=== PATIENT | male | born 1970 | race Two or more races ===

== ENCOUNTER 2018-01-28 22:28 | Inpatient (IN) | payer OTHER ==
[2018-01-28] MEDS ORDERED: IV NORMAL SALINE 500ML BAG 500 ML IV (23:45)
[2018-01-28] MEDS: ACETAMINOPHEN 500 MG TABLET PO (23:55)
[2018-01-29] MEDS: IV NORMAL SALINE 1000ML BAG 1,000 ML IV ×5 (00:15→14:55)
[2018-01-29] MEDS ORDERED: ONDANSETRON PF 4 MG/2 ML VIAL. IV (00:30)
[2018-01-29] MEDS ORDERED: fentaNYL PF VIAL 100 MCG/2 ML VIAL IV (00:30)
[2018-01-29 00:32] LABS: ADD MAN DIFF? NO
[2018-01-29 00:36] LABS: BASO # 0.1 x10^3/uL (0.0-0.2); BASO % 1 % (0-3); EOS % 0 % (0-3); HEMOGLOBIN 15.8 g/dL (13.0-17.5); LYMPH # 1.1 x10^3/uL (1.0-4.8); LYMPH % 11 % (24-48); MEAN CORPUSCULAR HEMOGLOBIN 31 pg (25-35); MEAN CORPUSCULAR HGB CONC 35 g/dL (31-37); MEAN CORPUSCULAR VOLUME 88 fL (79-100); MONO # 0.7 x10^3/uL (0.0-1.1); MONO % 6 % (0-9); NEUT # 8.3 x10^3uL (1.8-7.7); NEUT % 82 % (31-73); PLATELET COUNT 141 x10^3/uL (140-400); RED BLOOD COUNT 5.13 x10^6/uL (4.30-5.70); RED CELL DISTRIBUTION WIDTH 13.9 % (11.5-14.5); WHITE BLOOD COUNT 10.2 x10^3/uL (4.0-11.0)
[2018-01-29 00:45] LABS: ANION GAP 12 (6-14); BLOOD UREA NITROGEN 10 mg/dL (8-26); BUN/CREATININE RATIO 13 (6-20); CALCIUM 8.9 mg/dL (8.5-10.1); CARBON DIOXIDE 24 mmol/L (21-32); CHLORIDE 96 mmol/L (98-107); CREATININE 0.8 mg/dL (0.7-1.3); GFR 104.1; GLUCOSE 197 mg/dL (70-99); SODIUM 132 mmol/L (136-145)
[2018-01-29 00:51] LABS: ALBUMIN 3.5 g/dL (3.4-5.0); ALBUMIN/GLOBULIN RATIO 0.8 (1.0-1.7); ALK PHOS 142 U/L (46-116); ALT (SGPT) 29 U/L (16-63); AST (SGOT) 13 U/L (15-37); TOTAL BILIRUBIN 0.7 mg/dL (0.2-1.0)
[2018-01-29 00:56] LABS: LACTIC ACID 1.1 mmol/L (0.4-2.0)
[2018-01-29 01:13] LABS: PROCALCITONIN 0.31 ng/mL (0.00-0.10)
[2018-01-29] MEDS: IBUPROFEN 800 MG TABLET. PO (01:19)
[2018-01-29] MEDS: ACETAMINOPHEN 325 MG TABLET. PO ×3 (01:20→19:18)
[2018-01-29] MEDS ORDERED: DEXTROSE 50% 25 GM / 50ML DISP.SYRIN. IV (01:30)
[2018-01-29] MEDS: PIPERACILLIN/TAZOBACTAM 3.375 GM in IV NORMAL SALINE 50ML 50 ML IV ×4 (02:47→21:08)
[2018-01-29 05:38] LABS: POC GLUCOSE 166 mg/dL (70-99)
[2018-01-29 06:01] LABS: INFLUENZA A PATIENT NEGATIVE (NEGATIVE); INFLUENZA B PATIENT NEGATIVE (NEGATIVE); OBC FLU VALID
[2018-01-29 07:09] LABS: POC GLUCOSE 155 mg/dL (70-99)
[2018-01-29] MEDS: IPRATRPIUM/ALBUTEROL 0.5/2.5MG 3 ML NEBU. NEB ×4 (07:13→19:20)
[2018-01-29] MEDS: INSULIN LISPRO 300 UNITS/3 ML INSULN.PEN. SQ ×3 (08:16→17:43)
[2018-01-29 11:24] LABS: POC GLUCOSE 178 mg/dL (70-99)
[2018-01-29] MEDS: VANCOMYCIN 2 GM in IV 1/2 NORMAL SALINE 500 ML IV (14:56)
[2018-01-29] MEDS: ENOXAPARIN 40 MG/0.4 ML SYRINGE. SQ (14:58)
[2018-01-29 15:27] LABS: LACTIC ACID 1.7 mmol/L (0.4-2.0)
[2018-01-29] MEDS: VANCOMYCIN PER PHARMACY MC (15:43)
[2018-01-29 17:06] LABS: POC GLUCOSE 176 mg/dL (70-99)
[2018-01-29 20:48] LABS: POC GLUCOSE 200 mg/dL (70-99)
[2018-01-29] MEDS: LACTOBACILLUS RHAMNOSUS GG 1 CAPSULE. PO (21:08)
[2018-01-29] MEDS: VANCOMYCIN 1.25 GM in IV DEXTROSE 5 %-0.2 % NACL 250 ML IV (22:43)
[2018-01-30] MEDS: IV NORMAL SALINE 1000ML BAG 1,000 ML IV ×3 (00:45→20:45)
[2018-01-30] MEDS: ACETAMINOPHEN 325 MG TABLET. PO ×2 (04:07→12:22)
[2018-01-30 04:45] LABS: ADD MAN DIFF? NO
[2018-01-30 04:53] LABS: BASO % 0 % (0-3); EOS % 0 % (0-3); HEMATOCRIT 41.3 % (39.0-53.0); HEMOGLOBIN 14.4 g/dL (13.0-17.5); LYMPH # 1.5 x10^3/uL (1.0-4.8); LYMPH % 21 % (24-48); MEAN CORPUSCULAR HEMOGLOBIN 31 pg (25-35); MEAN CORPUSCULAR HGB CONC 35 g/dL (31-37); MEAN CORPUSCULAR VOLUME 88 fL (79-100); MONO # 0.7 x10^3/uL (0.0-1.1); MONO % 9 % (0-9); NEUT # 5.2 x10^3uL (1.8-7.7); NEUT % 70 % (31-73); PLATELET COUNT 139 x10^3/uL (140-400); RED BLOOD COUNT 4.68 x10^6/uL (4.30-5.70); WHITE BLOOD COUNT 7.4 x10^3/uL (4.0-11.0)
[2018-01-30 05:24] LABS: ALBUMIN 2.8 g/dL (3.4-5.0); ALBUMIN/GLOBULIN RATIO 0.6 (1.0-1.7); ALK PHOS 129 U/L (46-116); ALT (SGPT) 23 U/L (16-63); ANION GAP 9 (6-14); AST (SGOT) 17 U/L (15-37); BLOOD UREA NITROGEN 7 mg/dL (8-26); BUN/CREATININE RATIO 9 (6-20); CALCIUM 8.6 mg/dL (8.5-10.1); CARBON DIOXIDE 26 mmol/L (21-32); CHLORIDE 101 mmol/L (98-107); CREATININE 0.8 mg/dL (0.7-1.3); GFR 104.1; GLUCOSE 156 mg/dL (70-99); POTASSIUM 3.9 mmol/L (3.5-5.1); SODIUM 136 mmol/L (136-145); TOTAL BILIRUBIN 0.7 mg/dL (0.2-1.0); TOTAL PROTEIN 7.5 g/dL (6.4-8.2)
[2018-01-30] MEDS: PIPERACILLIN/TAZOBACTAM 3.375 GM in IV NORMAL SALINE 50ML 50 ML IV ×4 (06:00→23:14)
[2018-01-30] MEDS: VANCOMYCIN 1.25 GM in IV DEXTROSE 5 %-0.2 % NACL 250 ML IV (06:01)
[2018-01-30 07:43] LABS: POC GLUCOSE 159 mg/dL (70-99)
[2018-01-30] MEDS: IPRATRPIUM/ALBUTEROL 0.5/2.5MG 3 ML NEBU. NEB ×4 (07:44→20:24)
[2018-01-30] MEDS: LACTOBACILLUS RHAMNOSUS GG 1 CAPSULE. PO ×2 (08:40→22:31)
[2018-01-30] MEDS: INSULIN LISPRO 300 UNITS/3 ML INSULN.PEN. SQ ×3 (08:47→17:53)
[2018-01-30 12:14] LABS: POC GLUCOSE 177 mg/dL (70-99)
[2018-01-30 14:47] LABS: VANC TR 9.6 mcg/mL (10.0-20.0)
[2018-01-30] MEDS: VANCOMYCIN PER PHARMACY MC (15:13)
[2018-01-30] MEDS: ENOXAPARIN 40 MG/0.4 ML SYRINGE. SQ (15:15)
[2018-01-30] MEDS: VANCOMYCIN 1.5 GM in IV 1/2 NORMAL SALINE 500 ML IV ×2 (16:41→23:16)
[2018-01-30 17:12] LABS: POC GLUCOSE 197 mg/dL (70-99)
[2018-01-30 18:42] LABS: LACTIC ACID 1.2 mmol/L (0.4-2.0)
[2018-01-30 21:46] LABS: POC GLUCOSE 231 mg/dL (70-99)
[2018-01-31 04:54] LABS: ADD MAN DIFF? NO
[2018-01-31 04:58] LABS: BASO % 0 % (0-3); EOS # 0.1 x10^3/uL (0.0-0.7); EOS % 2 % (0-3); HEMATOCRIT 40.6 % (39.0-53.0); HEMOGLOBIN 14.1 g/dL (13.0-17.5); LYMPH # 1.7 x10^3/uL (1.0-4.8); LYMPH % 29 % (24-48); MEAN CORPUSCULAR HEMOGLOBIN 31 pg (25-35); MEAN CORPUSCULAR HGB CONC 35 g/dL (31-37); MEAN CORPUSCULAR VOLUME 89 fL (79-100); MONO # 0.5 x10^3/uL (0.0-1.1); MONO % 8 % (0-9); NEUT # 3.5 x10^3uL (1.8-7.7); NEUT % 61 % (31-73); PLATELET COUNT 153 x10^3/uL (140-400); RED BLOOD COUNT 4.58 x10^6/uL (4.30-5.70); WHITE BLOOD COUNT 5.7 x10^3/uL (4.0-11.0)
[2018-01-31] MEDS: PIPERACILLIN/TAZOBACTAM 3.375 GM in IV NORMAL SALINE 50ML 50 ML IV ×2 (05:14→12:00)
[2018-01-31] MEDS: ACETAMINOPHEN 325 MG TABLET. PO (05:16)
[2018-01-31 05:23] LABS: ANION GAP 5 (6-14); BLOOD UREA NITROGEN 7 mg/dL (8-26); CALCIUM 8.8 mg/dL (8.5-10.1); CARBON DIOXIDE 28 mmol/L (21-32); CHLORIDE 103 mmol/L (98-107); CREATININE 0.8 mg/dL (0.7-1.3); GFR 104.1; GLUCOSE 161 mg/dL (70-99); POTASSIUM 4.1 mmol/L (3.5-5.1); SODIUM 136 mmol/L (136-145)
[2018-01-31] MEDS: IV NORMAL SALINE 1000ML BAG 1,000 ML IV (05:50)
[2018-01-31 06:56] LABS: BILIRUBIN,URINE NEGATIVE (NEG); CLARITY,URINE CLEAR; COLOR,URINE YELLOW; GLUCOSE,URINE 250 mg/dL (NEG); NITRITE,URINE NEGATIVE (NEG); PROTEIN,URINE NEGATIVE (NEG-TRACE); UROBILINOGEN,URINE 0.2 mg/dL (0.2 mg/dL)
[2018-01-31 07:11] LABS: BACTERIA,URINE 0 /HPF (0-FEW); RBC,URINE 0 /HPF (0-2); WBC,URINE 0 /HPF (0-4)
[2018-01-31] MEDS: IPRATRPIUM/ALBUTEROL 0.5/2.5MG 3 ML NEBU. NEB ×2 (07:43→11:34)
[2018-01-31 08:10] LABS: POC GLUCOSE 150 mg/dL (70-99)
[2018-01-31] MEDS: LACTOBACILLUS RHAMNOSUS GG 1 CAPSULE. PO (08:23)
[2018-01-31] MEDS: VANCOMYCIN 1.5 GM in IV 1/2 NORMAL SALINE 500 ML IV ×2 (08:23→15:08)
[2018-01-31] MEDS: INSULIN LISPRO 300 UNITS/3 ML INSULN.PEN. SQ ×2 (08:28→12:05)
[2018-01-31] MEDS: VANCOMYCIN PER PHARMACY MC (11:28)
[2018-01-31 12:56] LABS: POC GLUCOSE 174 mg/dL (70-99)
[2018-01-31 13:21] LABS: BODY FLUID CULT Not Indicated (.); ORGANISM ID Not indicated. (.); SPECIMEN SOURCE Urine (.); STREP PNEUMO ANTIGEN Negative (Negative)
[2018-01-31] MEDS: ENOXAPARIN 40 MG/0.4 ML SYRINGE. SQ (15:04)
[2018-02-02 12:13] LABS: LEGIONELLA AG UR Negative (Negative)
[2018-02-02 12:13] LABS: BODY FLUID CULT Not Indicated (.); ORGANISM ID Not indicated. (.); SPECIMEN SOURCE Urine (.); STREP PNEUMO ANTIGEN Negative (Negative)
== END 2018-01-31 16:04 | disposition short-term general hospital (02) | DRG 871 ==
LOC: 6 SOUTH 01-29 00:13 → ER 22:28
DX: A41.9 Sepsis, unspecified organism (principal); J18.9 Pneumonia, unspecified organism; J98.11 Atelectasis; E11.9 Type 2 diabetes mellitus without complications; J40 Bronchitis, not specified as acute or chronic; Z83.3 Family history of diabetes mellitus; Z87.891 Personal history of nicotine dependence
CPT/HCPCS: 36415; 71046; 80048; 80053; 80202; 81001; 82962; 83605; 84145; 85025; 87040; 87449; 87804; 87804-59; 94640; 94760; 96374; 99285; 99285-25; J1650; J1815; J1956; J2543; J3370; J7030; J7620